=== PATIENT | female | born 1935 | race Caucasian/White ===

== ENCOUNTER 2020-11-12 10:53 | Outpatient (REF) | payer MEDICARE, OTHER, SELFPAY ==
--- NOTE | ~2020-11-12 | MM_ITS ---
EXAMINATION: MM SCREENING DIGITAL BREAST TOMOSYNTHESIS, BILATERAL CLINICAL INFORMATION: Screening. Asymptomatic. The lifetime risk of breast cancer based on the Tyrer-Cuzick Model is 1.3%. COMPARISON: Mammography: November 07, 2019 TECHNIQUE: Digital breast tomosynthesis is performed in both the craniocaudal and mediolateral oblique views along with computer-aided detection (CAD). Synthesized 2D images are generated from the tomosynthesis. FINDINGS: The breasts are extremely dense, which lowers the sensitivity of mammography (ACR BI-RADS breast composition Category d). There are no significant masses, abnormal calcifications, or other abnormalities. MM/MM tomosynthesis screening BI IMPRESSION: There are no significant changes from prior study. ASSESSMENT: BI-RADS 1: Negative RECOMMENDATION: Routine annual mammography screening. This patient's information was entered into a reminder system with a target due date for their next mammogram.
== END 2020-11-12 10:54 | disposition home or self-care (01) ==
LOC: HO.MAMMO 10:53
PROVIDERS: Visit Provider Internal Medicine
DX: Z12.31 Encounter for screening mammogram for malignant neoplasm of breast (principal)
CPT/HCPCS: 77063; 77067

== ENCOUNTER 2021-10-03 11:08 | Emergency (ER) | payer MEDICARE, OTHER, SELFPAY ==
--- NOTE | ~2021-10-03 | CT_ITS ---
EXAMINATION: CT HEAD WITHOUT CONTRAST CLINICAL INFORMATION: Fall and hit head. COMPARISON: None TECHNIQUE: Contiguous axial imaging was performed from the skull base to vertex without intravenous administration of contrast. This CT examination was performed using dose optimization techniques as appropriate, variously including the following: *Automated exposure control *Adjustment of mA and/or kV according to patient size (this includes techniques or standardized protocols for targeted exams where dose is matched to indication/reason for exam; i.e. extremities or head) *Use of iterative reconstruction technique DLP: 644 mGy-cm FINDINGS: There is no evidence of acute intracranial hemorrhage or territorial infarction. No abnormal mass effect or midline shift is seen. Hernandez to white matter differentiation is well preserved. No extra-axial fluid collections are identified. The ventricles are normal in size. There is no abnormal attenuation within the brain parenchyma. There is a left frontal scalp hematoma. No calvarial fracture seen. The paranasal sinuses and mastoid air cells are well-aerated. CT/CT head/brain wo con IMPRESSION: No acute intracranial process seen. Left frontal/forehead moderate size scalp hematoma without calvarial fracture.
[2021-10-03 11:14] VITALS: BP 139/83; PULSE 83; RESP 16; TEMP 36.6; O2SAT 98; BMI 21.5
--- NOTE | 2021-10-03 11:24 | ED_ITS ---
HPI - General Adult General Chief complaint: Fall Stated complaint: Fall Time Seen by Provider: 10/03/21 11:24 Source: patient Mode of arrival: ambulatory Limitations: no limitations History of Present Illness HPI narrative: 86-year-old female is here today for evaluation. Patient reports that she was getting out of the car last night around 730 and she took a couple steps in her driveway, she tripped and fell forward. Patient hit her head, tried catching herself with left hand and sustained abrasion on her forehead and her left hand. Patient denies feeling dizzy or lightheaded before she fell. Denies any dizziness, presyncope, syncope, shortness of breath, chest pain, palpitation. Patient reports that she is not on any medications. Does not take any blood thinners, not on any supplement that could thin her blood. Patient reports that she went home and she felt fine last night, did not noticed any swelling before going to bed. She reports she had mild abrasion to left frontal area, without any swelling or hematoma. This morning patient woke up with large hematoma. Left eye swelling. Patient continues to have no headache and no pain. Patient denies any neck pain. Patient denies any nausea or vomiting. No ringing in her ears. Onset (ago): hour(s) Location: head Radiation: non-radiation and other (Patient reports no pain) Related Data Home Medications Medication Instructions Recorded Confirmed No Known Home Meds 10/03/21 10/03/21 Allergies Allergy/AdvReac Type Severity Reaction Status Date / Time No Known Allergies Allergy Unverified 05/23/20 16:32 Review of Systems Verdana 4l Review of Systems: Verdana 4d Verdana 4d Constitutional : No Weight loss, No Fever, No Chills, No Night Sweats, No Fatigue, No Malaise ENT/Mouth : No Hearing loss, No Ear Pain, No Nasal Congestion, No Sinus Pain, No Hoarseness, No sore throat, No Rhinorrhea, No Swallowing DifficultyDifficulty Eyes: No Eye Pain, No Swelling, No Redness, No Foreign Body, No Discharge, No Vision Changes Cardiovascular : No Chest Pain, No SOB, No Dyspnea on Exertion, No Orthopnea, No Edema, No Palpitations Respiratory : No Cough, No Sputum, No Wheezing, No Smoke Exposure, No Dyspnea Gastrointestinal : No Nausea, No Vomiting, No Diarrhea, No Constipation, No abdominal Pain, No Hematochezia, No Melena Genitourinary : no irregular bleeding, No Dysuria, No Urinary Frequency, No Hematuria, No Urinary Incontinence, No Urgency, No Flank Pain, No Urinary Flow Changes, No Hesitancy Musculoskeletal : No joint pain, No Myalgias, No Joint Swelling Skin : No Skin Lesions, No rash, left frontal head abrasion and bruising Neuro : No Weakness, No Numbness, No Paresthesias, No Loss of Consciousness, No Dizziness, No Headache Psych : No Anxiety/Panic, No Depression, No SI/HI/AH/VH, No Social Issues, Yes all other systems are reviewed and are negative [facility] Past Medical History Medical History (Updated 10/04/21 @ 00:01 by Emmanuel Medina) No pertinent past medical history Surgical History History of dental surgery Social History Social History Alcohol intake: never Patient Tobacco Use Status: Never used Tobacco Smoked in Last 30 Days: No Use of substances other than those prescribed or required for medical reasons: No Advance Directives: No Advance Directives Information Provided: Yes Physical Exam Verdana 4l Vital Signs: Verdana 4d Verdana 4d Vital Signs: Verdana 4d Verdana 4Bd Last Vital Signs Verdana 4d Tobacco Checkout Clerk New 4d Tobacco Checkout Clerk New 4d Temp 98 F 10/03/21 11:14 Tobacco Checkout Clerk New 4d Pulse 66 10/03/21 14:36 Tobacco Checkout Clerk New 4d Resp 16 10/03/21 12:55 BP 139/47 L 10/03/21 14:36 Pulse Ox 99 10/03/21 14:36 BMI result Body Mass Index 21.5 Const: General: healthy appearing, no acute distress and well developed Nutritional Appearance: well nourished Orientation/consciousness: patient oriented x3 HENMT: Other: Head: Yes abrasion, Yes contusion and Yes hematoma Face and sinus: Yes normal facial exam Mouth: Normal oral and palatal mucosa present Teeth and gingiva: dentition normal Throat: Yes posterior oropharynx normal, Yes tonsils normal and Yes uvula midline Eyes: Visual Myers: normal visual myers by confrontation Alignment and Position: alignment normal Conjunctivae: conjunctivae normal Sclerae: sclerae normal Corneas: corneas normal Pupils: Equal, round and reactive pupils present Neck: Neck: Yes normal visual inspection, Yes full ROM and Yes trachea midline Thyroid: Thyroid normal Chest: Chest palpation & inspection: normal inspection of the chest Resp: Effort & Inspection: normal respiratory effort, able to speak in complete sentences, no tracheal deviation and symmetric chest movement Auscultation: clear to auscultation bilaterally Cardio: Jugular venous distension: no JVD Rate: regular rate Heart sounds: S1 normal heart sound present, S2 normal heart sound present, no gallops and no murmurs GI: Inspection: Yes normal to inspection and No distended Palpation (GI): Soft to palpation, not firm, nontender and No hepatosplenomegaly present Auscultation: normal bowel sounds : General: Yes no CVA tenderness Back/Spine/Pelvis: Back: no CVA tenderness Skin: General skin exam: elasticity normal, turgor normal and dry skin Neuro: General: patient oriented x3 Cranial nerves: Yes Equal, round and reactive pupils present Psych: Appearance: grossly normal Mental Status: mental status grossly normal Speech and movement: Normal speech and movement present Affect: normal affect Attitude: cooperative Thought process: Normal thought process present Thought content: Normal thought content present Insight: Good insight present (Psych) Judgement: Good judgement present (Psych) NIH Stroke Scale Level of Consciousness: Alert Level of Consciousness Questions: Answers both questions correctly Level of Consciousness Commands: Performs both tasks correctly Best Gaze: Normal Visual: No visual loss Facial Palsy: Normal Motor Arm (Right): No drift Motor Arm (Left): No drift Motor Leg (Right): No drift Motor Leg (Left): No drift Limb Ataxia: Absent Sensory: Normal Best Language: No aphasia Dysarthia: Normal Extinction and Inattention: No abnormality Score: 0 Course Course Course Narrative: 86-year-old female is here today for evaluation. Patient was getting out of her car yesterday at 7:30 p.m. and reports tripping on her pavement in the driveway. Patient fell forward hitting her left frontal head. Patient denies taking any anticoagulation medications, denies feeling dizzy before or after the incident. Patient reports that she went home and went to sleep and fell fine and this morning patient woke up with large hematoma over her left eye, unable to fully open her eye. Patient denies any dizziness, syncope or presyncope. Exam negati ve for cervical spine tenderness. I will do CT scan to make sure that there is no orbital fracture. Patient reports that she has no pain. As mentioned above in HPI patient has no signs and symptoms of concussion except for feeling lightheaded. Patient does report she has not eaten much this morning. Denies any nausea or vomiting, no ringing in her ears. Reevaluation(s) Reevaluation #1: CT scan showed no acute intracranial process seen. Left frontal forehead moderate size scalp hematoma without calvarial fracture. Patient's niece called and reported that patient's house is very cluttered, and she is worried about her. Patient is alert and oriented wants to go home. Spoke to case management Lena, who will investigate further. Reevaluation #2: Patient continues to be feeling well, denies any presyncope, syncope. Ambulating to the bathroom without any issues. Does reports lightheadedness will feed the patient. Will order physical therapy for evaluation before patient will go home. Reevaluation #3: Patient is cleared by physical therapy she is okay to go home with [facility] services. Spoke with case management, day will work on a setting that up for the patient. [facility] will send physical therapy to patient's home to evaluate for safety as well as for 1st physical therapy assessment. Case management called patient's niece and patient's brother will come and pick her up to take her home. Follow-up appointment was set up next week on October 09 at 1:30 a.m. with her primary care provider. Patient is agreeable to this plan and verbalizes understanding of instructions. Patient is aware that she needs to call the ambulance if she will have any dizziness, fatigue, numbness to her extremities. Patient was encouraged to return to emergency department if she will have any concerning symptoms Medical Decision Making Lab Data Labs: Lab Results 10/03/21 Range/Units 15:01 Influenza Type A (PCR) NEGATIVE (Negative) Influenza Type B (PCR) NEGATIVE (Negative) RSV RNA Qual (PCR) NEGATIVE (Negative) SARS-CoV-2 RNA (RT-PCR) NEGATIVE (Negative) Imaging Data CT scan - head: Attestation: I personally reviewed and interpreted this imaging study as follows: Radiologist's impression: FINDINGS: There is no evidence of acute intracranial hemorrhage or territorial infarction. No abnormal mass effect or midline shift is seen. Hernandez to white matter differentiation is well preserved. No extra-axial fluid collections are identified. The ventricles are normal in size. There is no abnormal attenuation within the brain parenchyma. There is a left frontal scalp hematoma. No calvarial fracture seen. The paranasal sinuses and mastoid air cells are well-aerated. Discharge Plan Discharge Clinical Impression: Concussion without loss of consciousness, Fall Patient Disposition: Home, Self-Care Instructions: Concussion (ED), Fall Prevention for Older Adults (ED) Additional Instructions: You were seen here today after sustaining fall at home. Please follow-up with your primary care provider. You're CT scan was negative for any acute findings except for moderate bruising. Please make sure that you what she was stepped when you ambulate. We have arranged for [facility] to come and do evaluation to see how they can assist you at home. You will be having an appointment with your primary care provider early next week. You may return to emergency department if your symptoms will get worse or if you experience any additional concerning symptoms. Please apply ice to your injury for the next 72 hours. You have a doctor's appointment with your primary cause her air provider next week on October 09 at 1:30 p.m. Prescriptions: No Action No Known Home Meds 0RF Referrals: Sebastian Smith MD [Primary Care Provider] - 10/09/21 1:30 pm Interventions: ED Discharge Assessment Last Done: 10/03/21 15:43 Discharge Date/Time: 10/03/21 15:43
--- NOTE | 2021-10-03 11:31 | PC.NURSE ---
jean [phone] tarun
[2021-10-03 12:55] VITALS: BP 139/47; PULSE 66; RESP 16; O2SAT 99
[2021-10-03 14:36] VITALS: BP 139/47; PULSE 66; O2SAT 99
--- NOTE | 2021-10-03 14:53 | MHC.CM.ED ---
Received case management consult from [facility]. Patient came to the ER due to a fall in her driveway. Patient has a hematoma on her forehead. Physical therapy eval completed. Home services are recommended. Dr Smith is patient's PCP. Referral made to [facility]. T/W spoke with patient's niece, Jane via telephone at [phone]. Jane is concerned that patient is not safe at home. T/W explained patient is alert and oriented and passed physical therapy. Unfortunately patient can't be forced to go to rehab and Medicare won't cover rehab anyway. Jane verbalized understanding. Patient's brother will be in the ER around 330pm to transport patient home. Patient has her keys. Received notification from [facility] that patient hasn't seen Dr Smith since 2019. Dr Smith will not sign [facility] orders until she is seen in their office first. rn first assistant has been asked to make a follow up emerald;ointment for patient. After that appointment, Dr Martínez office can arrange [facility]. Appointment is 10/09/21 at 130pm. Continue to monitor for d/c needs.
[2021-10-03 15:51] LABS: Influenza A PCR NEGATIVE (Negative); Influenza B PCR NEGATIVE (Negative); Resp Syncy Virus RNA Qual PCR NEGATIVE (Negative); SARS COV2 PCR INHOUSE NEGATIVE (Negative)
== END 2021-10-03 15:43 | disposition home or self-care (01) ==
PROVIDERS: Nurse Practitioner Family; Emergency Provider Emergency Medicine; PCP Internal Medicine
DX: S06.0X0A Concussion without loss of consciousness, initial encounter (principal); G44.309 Post-traumatic headache, unspecified, not intractable; R29.700 NIHSS score 0; W01.0XXA Fall on same level from slipping, tripping and stumbling without subsequent striking against object, initial encounter; Y93.9 Activity, unspecified; Y92.007 Garden or yard of unspecified non-institutional (private) residence as the place of occurrence of the external cause; Y99.9 Unspecified external cause status; Z20.822 Contact with and (suspected) exposure to COVID-19; Z79.899 Other long term (current) drug therapy
CPT/HCPCS: 0241U; 70450; 97162; 99284

== ENCOUNTER 2021-10-11 10:42 | Outpatient (REF) | payer MEDICARE, OTHER, SELFPAY ==
[2021-10-11 10:55] LABS: MANUAL DIFF FLAG NO
[2021-10-11 11:58] LABS: Basophils Absolute Auto 0.1 X10*3/uL (0.0-0.2); Basophils Percent Auto 0.9 % (0-2); Eosinophils Absolute Auto 0.1 X10*3/uL (0.0-0.4); Eosinophils Percent Auto 1.7 % (0-4); Hematocrit 43.9 % (37.0-47.0); Hemoglobin 14.1 g/dl (12.0-16.0); Imm Gran Abs Auto 0.02 X10*3/uL (0.00-0.03); Imm Gran Pct Auto 0.3 % (0.0-0.4); Lymphocytes Absolute Auto 1.7 X10*3/uL (1.2-4.9); Lymphocytes Percent Auto 24.4 % (20-40); Mean Corpuscular HGB Conc 32.1 g/dl (31.0-35.0); Mean Corpuscular Hemoglobin 29.4 pg (27.0-33.0); Mean Corpuscular Volume 91.6 fL (80.0-98.0); Mean Platelet Volume 10.8 fL (9.4-12.3); Monocytes Absolute Auto 0.4 X10*3/uL (0.1-1.2); Monocytes Percent Auto 5.5 % (2-11); Neutrophils Absolute Auto 4.7 x10*3/uL (2.0-8.3); Neutrophils Percent Auto 67.2 % (45-73); Platelet Count 299 X10*3/uL (160-400); Red Blood Count 4.79 X10*6/uL (4.20-5.50); Red Cell Distribution Width 14.2 % (11.0-16.0)
[2021-10-11 12:20] LABS: Alanine Aminotransferase 14 U/L (0-31); Albumin Level 4.4 g/dL (3.5-5.0); Alkaline Phosphatase 118 U/L (39-117); Anion Gap 12 (12-20); Aspartate Amino Transferase 23 U/L (5-31); Bilirubin Total 0.8 mg/dL (0.0-1.0); Blood Urea Nitrogen 11 mg/dL (9-16); Calcium 10.1 mg/dL (8.4-10.2); Carbon Dioxide 31 mmol/L (22-29); Chloride 105 mmol/L (96-108); Cholesterol 258 mg/dL; Estimated Glomerular Filt Rate 48; Glucose Random 128 mg/dL (60-115); Potassium 4.5 mmol/L (3.3-5.1); Sodium 143 mmol/L (135-145); Total Protein 7.4 g/dL (6.5-8.0)
[2021-10-11 12:40] LABS: Free T4 (Free Thyroxine) 0.94 ng/dL (0.71-1.85); Thyroid Stimulating Hormone 4.47 uIU/mL (0.32-4.0)
== END 2021-10-11 10:43 | disposition home or self-care (01) ==
LOC: HO.LAB 10:42
PROVIDERS: PCP Internal Medicine; Visit Provider Internal Medicine
DX: E78.00 Pure hypercholesterolemia, unspecified (principal); Z91.81 History of falling
CPT/HCPCS: 36415; 80053; 82465; 84439; 84443; 85025

== ENCOUNTER 2021-10-14 17:49 | Outpatient (REF) | payer MEDICARE, OTHER, SELFPAY ==
[2021-10-14 17:58] LABS: Appearance Urine HAZY; Color Urine YELLOW; Glucose Urine UA NEG (NEG); Leukocyte Esterase Urine NEG (NEG); Nitrite Urine NEG (NEG); Specific Gravity - Urine 1.025 (1.005-1.025); Urine Blood NEG (NEG); Urine Ketones NEG (NEG); Urine Protein NEG (NEG-TRACE)
== END 2021-10-14 17:50 | disposition home or self-care (01) ==
LOC: HO.LAB 17:49
PROVIDERS: Visit Provider Internal Medicine
DX: E78.00 Pure hypercholesterolemia, unspecified (principal); R63.4 Abnormal weight loss; Z91.81 History of falling
CPT/HCPCS: 81003

== ENCOUNTER 2021-12-25 10:38 | Outpatient (REF) | payer MEDICARE, OTHER, SELFPAY ==
[2021-12-25 11:52] LABS: Estimated Average Glucose 105 mg/dL; Hemoglobin A1c % 5.3 %
[2021-12-25 12:07] LABS: Anion Gap 14 (12-20); Blood Urea Nitrogen 20 mg/dL (9-16); C Reactive Protein 0.04 mg/dL (< or = 0.50); Calcium 10.1 mg/dL (8.4-10.2); Carbon Dioxide 30 mmol/L (22-29); Chloride 104 mmol/L (96-108); Cholesterol 229 mg/dL; Estimated Glomerular Filt Rate 51; Glucose Random 105 mg/dL (60-115); HDL Cholesterol 68 mg/dL; LDL Cholesterol Calculated 151 mg/dl; Potassium 4.5 mmol/L (3.3-5.1); Sodium 143 mmol/L (135-145); Triglycerides 54 mg/dL
[2021-12-25 12:16] LABS: Vitamin D 25-OH Total 5.9 ng/mL (>30)
[2021-12-25 12:17] LABS: Vitamin B12 169 pg/mL (200-900)
== END 2021-12-25 10:39 | disposition home or self-care (01) ==
LOC: HO.LAB 10:38
PROVIDERS: PCP Internal Medicine; Visit Provider Internal Medicine
DX: R73.03 Prediabetes (principal); E03.9 Hypothyroidism, unspecified; E78.00 Pure hypercholesterolemia, unspecified; M81.0 Age-related osteoporosis without current pathological fracture
CPT/HCPCS: 36415; 80048; 80061; 82306; 82607; 83036; 86140

== ENCOUNTER 2022-01-16 10:11 | Outpatient (REF) | payer MEDICARE, OTHER, SELFPAY ==
--- NOTE | 2022-01-16 12:33 | MHC.AU.ANR ---
Adult Audiological Evaluation Date of Visit: 01/16/22 Reason for Appointment: Audiological evaluation due to concern for decreased hearing. Mrs. Salomon reports difficulties hearing when people are speaking softly or when they are wearing masks. She feels she otherwise hears well. The family member accompanying Mrs. Salomon noted that she often asks for repetition. Does patient feel they have a hearing loss?: No Hearing Handicap Inventory: HHIE SCORE: 4 Based on HHIE score, patient has: No perceived hearing handicap Ear History: Family History of Hearing Loss?: Yes: Father in his 80s History of Ear Wax Buildup: Both Ears Medical History: Medical History: Unremarkable Medical History Medication List: Vitamin B1 Otoscopy: Right Ear: Unremarkable Left Ear: Unremarkable Tympanometry: Tympanometry performed due to: To assess integrity of the middle ear system Right Ear: Normal Middle Ear System (Type A) Left Ear: Non-compliant Middle Ear System (Type B) Hearing Evaluation: Transducer(s) Used: Insert Earphones, Bone Conduction Method: Conventional Audiometry Stimuli Used: Pure Tones Right Ear: Description of Hearing: Mild to severe sensorineural hearing loss from 250-8000 Hz. Left Ear: Description of Hearing: Mild to moderately-severe sensorineural hearing loss from 250-8000 Hz. Speech Recognition Threshold (SRT): Method Used: Monitored Live Voice Stimuli Used: Spondee Words Right Ear: 45 dBHL Left Ear: 35 dBHL Word Discrimination: Method: Recorded Lists Word Lists Used: NU-6 Right Ear: 84% at 80 dBHL Left Ear: 72% at 80 dBHL Interpretation of Results: Today's evaluation indicates a mild to moderately-severe/severe sensorineural hearing loss bilaterally. Hearing loss of this degree is likely to have a significant impact on communication, especially in environments with background noise and when the speaker's face cannot be clearly seen. Ms. Salomon would benefit from binaural amplification. Recommendations: Audiological re-evaluation in one year. Trial with amplification is recommended. Discussed hearing aid technologies and benefits. Provided Ms. Salomon with literature about some of the hearing aids we work with in our clinic. Ms. Salomon was welcomed to return to further discuss hearing aids if she decided she would like to pursue them through our clinic. Diagnosis: Primary Diagnosis: H90.3 Bilateral Sensorineural Hearing Loss Secondary Diagnosis: H61.23 Impacted Cerumen, Bilateral Services Performed: Services Performed: Comprehensive Audiological Evaluation (CPT 12469) Tympanometry (CPT 68585) Signature: Provider: Michelle Motta, CCC-A
== END 2022-01-16 10:12 | disposition home or self-care (01) ==
LOC: HO.SH 10:11
PROVIDERS: Visit Provider Internal Medicine
DX: Z01.118 Encounter for examination of ears and hearing with other abnormal findings (principal); H90.3 Sensorineural hearing loss, bilateral; H61.23 Impacted cerumen, bilateral
CPT/HCPCS: 92557; 92567

== ENCOUNTER 2022-04-01 13:20 | Outpatient (REF) | payer MEDICARE, OTHER, SELFPAY ==
[2022-04-01 14:30] LABS: Anion Gap 13 (12-20); Blood Urea Nitrogen 15 mg/dL (9-16); Carbon Dioxide 29 mmol/L (22-29); Chloride 106 mmol/L (96-108); Estimated Glomerular Filt Rate 46; Glucose Random 122 mg/dL (60-115); Potassium 4.8 mmol/L (3.3-5.1); Sodium 143 mmol/L (135-145)
[2022-04-01 14:53] LABS: Vitamin D 25-OH Total 25.8 ng/mL (>30)
[2022-04-01 14:58] LABS: Vitamin B12 709 pg/mL (200-900)
== END 2022-04-01 13:21 | disposition home or self-care (01) ==
LOC: HO.LAB 13:20
PROVIDERS: PCP Internal Medicine; Visit Provider Internal Medicine
DX: E53.8 Deficiency of other specified B group vitamins (principal); E55.9 Vitamin D deficiency, unspecified; N18.9 Chronic kidney disease, unspecified
CPT/HCPCS: 36415; 80048; 82306; 82607

== ENCOUNTER 2022-07-14 12:55 | Outpatient (REF) | payer MEDICARE, OTHER, SELFPAY ==
[2022-07-14 14:03] LABS: Basophils Absolute Auto 0.1 X10*3/uL (0.0-0.2); Basophils Percent Auto 1.1 % (0-2); Eosinophils Absolute Auto 0.1 X10*3/uL (0.0-0.4); Eosinophils Percent Auto 1.4 % (0-4); Hematocrit 37.8 % (37.0-47.0); Hemoglobin 12.3 g/dl (12.0-16.0); Imm Gran Abs Auto 0.02 X10*3/uL (0.00-0.03); Imm Gran Pct Auto 0.3 % (0.0-0.4); Lymphocytes Absolute Auto 1.6 X10*3/uL (1.2-4.9); Lymphocytes Percent Auto 21.9 % (20-40); MANUAL DIFF FLAG SCAN; Mean Corpuscular HGB Conc 32.5 g/dl (31.0-35.0); Mean Corpuscular Volume 89.2 fL (80.0-98.0); Monocytes Absolute Auto 0.5 X10*3/uL (0.1-1.2); Monocytes Percent Auto 7.4 % (2-11); Neutrophils Absolute Auto 4.9 x10*3/uL (2.0-8.3); Neutrophils Percent Auto 67.9 % (45-73); PLT CLUMP 1; Red Blood Count 4.24 X10*6/uL (4.20-5.50); Red Cell Distribution Width 15.1 % (11.0-16.0); SCAN SMEAR FLAG 1
[2022-07-14 14:34] LABS: Alanine Aminotransferase 6 U/L (0-31); Albumin Level 4.1 g/dL (3.5-5.0); Alkaline Phosphatase 103 U/L (39-117); Anion Gap 13 (12-20); Aspartate Amino Transferase 18 U/L (5-31); Bilirubin Total 0.5 mg/dL (0.0-1.0); Blood Urea Nitrogen 17 mg/dL (9-16); Calcium 10.1 mg/dL (8.4-10.2); Carbon Dioxide 27 mmol/L (22-29); Chloride 106 mmol/L (96-108); Estimated Glomerular Filt Rate > 60; Glucose Random 94 mg/dL (60-115); Potassium 4.9 mmol/L (3.3-5.1); Sodium 141 mmol/L (135-145); Total Protein 6.8 g/dL (6.5-8.0); Vitamin D 25-OH Total 31.4 ng/mL (>30)
[2022-07-14 14:49] LABS: White Blood Count 7.2 X10*3/uL (4.8-10.8)
[2022-07-14 14:53] LABS: SLIDE REVIEW VERIFIED
== END 2022-07-14 12:56 | disposition home or self-care (01) ==
LOC: HO.10HDL 12:55
PROVIDERS: Visit Provider Internal Medicine
DX: E55.9 Vitamin D deficiency, unspecified (principal); N18.9 Chronic kidney disease, unspecified
CPT/HCPCS: 36415; 80053; 82306; 85025

== ENCOUNTER 2023-12-02 11:52 | Outpatient (REF) | payer MEDICARE, OTHER, SELFPAY ==
[2023-12-02 13:08] LABS: MANUAL DIFF FLAG NO
[2023-12-02 13:29] LABS: Basophils Absolute Auto 0.1 X10*3/uL (0.0-0.2); Basophils Percent Auto 1.5 % (0-2); Eosinophils Absolute Auto 0.1 X10*3/uL (0.0-0.4); Hematocrit 38.8 % (37.0-47.0); Hemoglobin 12.6 g/dl (12.0-16.0); Imm Gran Abs Auto 0.01 X10*3/uL (0.00-0.03); Imm Gran Pct Auto 0.2 % (0.0-0.4); Lymphocytes Absolute Auto 1.4 X10*3/uL (1.2-4.9); Lymphocytes Percent Auto 20.3 % (20-40); Mean Corpuscular HGB Conc 32.5 g/dl (31.0-35.0); Mean Corpuscular Hemoglobin 28.6 pg (27.0-33.0); Mean Corpuscular Volume 88.2 fL (80.0-98.0); Mean Platelet Volume 11.7 fL (9.4-12.3); Monocytes Absolute Auto 0.5 X10*3/uL (0.1-1.2); Monocytes Percent Auto 7.5 % (2-11); Neutrophils Absolute Auto 4.6 x10*3/uL (2.0-8.3); Neutrophils Percent Auto 68.5 % (45-73); Platelet Count 154 X10*3/uL (160-400); Red Cell Distribution Width 14.6 % (11.0-16.0); White Blood Count 6.7 X10*3/uL (4.8-10.8)
[2023-12-02 13:54] LABS: Alanine Aminotransferase 10 U/L (0-31); Alkaline Phosphatase 123 U/L (39-117); Anion Gap 12 (12-20); Aspartate Amino Transferase 17 U/L (5-31); Bilirubin Total 0.5 mg/dL (0.0-1.0); Blood Urea Nitrogen 17 mg/dL (9-16); Calcium 9.9 mg/dL (8.4-10.2); Carbon Dioxide 29 mmol/L (22-29); Chloride 107 mmol/L (96-108); Cholesterol 222 mg/dL (<200); Estimated Glomerular Filt Rate 51; Glucose Random 93 mg/dL (60-115); Potassium 3.9 mmol/L (3.3-5.1); Sodium 144 mmol/L (135-145); Total Protein 7.1 g/dL (6.5-8.0)
[2023-12-02 14:15] LABS: Free T4 (Free Thyroxine) 0.82 ng/dL (0.71-1.85); Thyroid Stimulating Hormone 3.07 uIU/mL (0.32-4.0); Vitamin D 25-OH Total 22.8 ng/mL (>30)
== END 2023-12-02 11:53 | disposition home or self-care (01) ==
LOC: HO.10HDL 11:52
PROVIDERS: Visit Provider Internal Medicine
DX: E78.00 Pure hypercholesterolemia, unspecified (principal); N18.9 Chronic kidney disease, unspecified; E55.9 Vitamin D deficiency, unspecified
CPT/HCPCS: 36415; 80053; 82306; 82465; 84439; 84443; 85025

== ENCOUNTER 2024-03-30 12:23 | Outpatient (REF) | payer MEDICARE, OTHER, SELFPAY ==
[2024-03-30 13:13] LABS: MANUAL DIFF FLAG NO
[2024-03-30 13:27] LABS: Basophils Absolute Auto 0.1 X10*3/uL (0.0-0.2); Basophils Percent Auto 1.2 % (0-2); Eosinophils Absolute Auto 0.3 X10*3/uL (0.0-0.4); Eosinophils Percent Auto 3.8 % (0-4); Hematocrit 36.7 % (37.0-47.0); Hemoglobin 11.7 g/dl (12.0-16.0); Imm Gran Abs Auto 0.02 X10*3/uL (0.00-0.03); Imm Gran Pct Auto 0.3 % (0.0-0.4); Lymphocytes Absolute Auto 1.5 X10*3/uL (1.2-4.9); Lymphocytes Percent Auto 19.7 % (20-40); Mean Corpuscular HGB Conc 31.9 g/dl (31.0-35.0); Mean Corpuscular Hemoglobin 28.5 pg (27.0-33.0); Mean Corpuscular Volume 89.5 fL (80.0-98.0); Mean Platelet Volume 11.5 fL (9.4-12.3); Monocytes Absolute Auto 0.4 X10*3/uL (0.1-1.2); Monocytes Percent Auto 5.6 % (2-11); Neutrophils Absolute Auto 5.4 x10*3/uL (2.0-8.3); Neutrophils Percent Auto 69.4 % (45-73); Platelet Count 207 X10*3/uL (160-400); Red Cell Distribution Width 14.7 % (11.0-16.0); White Blood Count 7.8 X10*3/uL (4.8-10.8)
[2024-03-30 13:33] LABS: Anion Gap 13 (12-20); Blood Urea Nitrogen 17 mg/dL (9-16); Calcium 9.2 mg/dL (8.4-10.2); Carbon Dioxide 26 mmol/L (22-29); Chloride 108 mmol/L (96-108); Estimated Glomerular Filt Rate 51; Glucose Random 122 mg/dL (60-115); Potassium 3.4 mmol/L (3.3-5.1); Sodium 144 mmol/L (135-145)
[2024-03-30 13:54] LABS: Vitamin D 25-OH Total 32.9 ng/mL (>30)
== END 2024-03-30 12:24 | disposition home or self-care (01) ==
LOC: HO.10HDL 12:23
PROVIDERS: Visit Provider Internal Medicine
DX: N18.9 Chronic kidney disease, unspecified (principal); E55.9 Vitamin D deficiency, unspecified
CPT/HCPCS: 36415; 80048; 82306; 85025